=== PATIENT | female | born 1995 | race Two or more races ===

== ENCOUNTER 2022-02-07 07:05 | Emergency (ER) | payer SELFPAY ==
[2022-02-07] MEDS ORDERED: Acetaminophen 325 MG Tab PO ONE (08:24)
== END 2022-02-07 11:03 | disposition home or self-care (01) ==
LOC: MW.ED 07:05
DX: O03.9 Complete or unspecified spontaneous abortion without complication (principal); Z3A.01 Less than 8 weeks gestation of pregnancy
CPT/HCPCS: 36415; 76817; 81001; 81025; 85025; 86850; 86900; 86901; 99284; A9270